=== PATIENT | female | born 1950 | race Caucasian/White ===

== ENCOUNTER → 2016-08-10 | Outpatient (CLI) | payer OTHER ==
--- NOTE | 2016-08-10 18:31 | DI ---
Right ankle pain. Prior study 07/14/16. Procedure: Three-view. Findings: Evidence of prior plate placement lateral fibula and what appears to be a suture anchor in the medial tibia, well above the medial malleolus. Separate ossification subjacent to the medial mall eolus, possibly a fracture fragment. Talar dome appears intact but slightly asymmetric. No evidence o f osteo-chondritis dissecans. Large enthesophyte inferior os calcis. Overall bone mineral density low. Some degenerative changes in the midfoot. Moderate lateral soft tissue swelling. The ankle. No eviden ce of new fracture. IMPRESSION: Moderate soft tissue swelling especially laterally. Evidence of prior orthopedic interven tion. Small fixation disc or suture anchor posteromedially. Large enthesophyte inferior os calcis
== END ==
LOC: ORTHO 16:21
PROVIDERS: ATTEND Orthopaedic Surgery
DX: M25.571 Pain in right ankle and joints of right foot (principal); X50.1XXA Overexertion from prolonged static or awkward postures, initial encounter; F17.210 Nicotine dependence, cigarettes, uncomplicated; Z98.890 Other specified postprocedural states
CPT/HCPCS: 73610

== ENCOUNTER → 2016-09-21 | Outpatient (CLI) | payer OTHER | LOC: MMPC 10:00 | PROVIDERS: ATTEND Orthopaedic Surgery | DX: Z47.89 Encounter for other orthopedic aftercare (principal) ==

== ENCOUNTER → 2016-10-19 | Outpatient (CLI) | payer OTHER ==
[2016-10-19 12:15] LABS: BASOPHILS # (AUTO) 0.03 10*3/UL; BASOPHILS % (AUTO) 0.3 % (0-1); EOSINOPHILS # (AUTO) 0.22 10*3/UL; EOSINOPHILS % (AUTO) 2.6 % (0-8); HEMATOCRIT 41.9 % (37.0-47.0); HEMOGLOBIN 13.8 g/dL (12.0-16.0); LYMPHOCYTES # (AUTO) 2.96 10*3/uL; MEAN CORPUSCULAR HEMOGLOBIN 30.7 PG (27-31); MEAN CORPUSCULAR HGB CONC 32.9 g/dL (33-37); MEAN PLATELET VOLUME 10.3 FL (7.4-12.2); MONOCYTES # (AUTO) 0.56 10*3/UL (0.3-0.8); MONOCYTES % (AUTO) 6.5 % (5-15)
[2016-10-19 12:22] LABS: BLOOD UREA NITROGEN 15 mg/dL (7-22); CALCIUM 9.4 mg/dL (8.7-10.7); EST GLOMERULAR FILTRATION > 60 (>60 ml/min/1.73m(2)); HDL CHOLESTEROL 51 mg/dL (40-150); PLATELET MORPHOLOGY COMMENT NORMAL MORPHOLOGY (NORM); RBC MORPHOLOGY COMMENT NORMAL MORPHOLOGY (NORM); SERUM ALBUMIN 3.9 g/dL (3.5-4.8); SERUM CHOLESTEROL 189 mg/dL (120-200); WBC MORPHOLOGY COMMENT NORMAL MORPHOLOGY (NORM)
== END ==
LOC: MOB LAB 10:40
PROVIDERS: ATTEND Internal Medicine
DX: E78.5 Hyperlipidemia, unspecified (principal); I10 Essential (primary) hypertension; E03.9 Hypothyroidism, unspecified; Z72.0 Tobacco use
CPT/HCPCS: 36415; 80053; 80061; 82550; 84443; 85025

== ENCOUNTER → 2016-10-27 | Outpatient (CLI) | payer OTHER | LOC: MMPC 11:11 | PROVIDERS: ATTEND Surgery | DX: R13.14 Dysphagia, pharyngoesophageal phase (principal); R19.7 Diarrhea, unspecified; Z86.19 Personal history of other infectious and parasitic diseases; K21.0 Gastro-esophageal reflux disease with esophagitis; Z86.010 Personal history of colon polyps | CPT/HCPCS: 99203; G0463 ==

== ENCOUNTER 2016-11-02 08:39 | Day surgery (SDC) | payer OTHER ==
[~2016-11-02 08:39] MED LIST: LIDOCAINE W/ SODIUM BICARB 0.5 ML SYR ONE; Lactated Ringers 1,000 ML PRIMARY IV ONE
--- NOTE | 2016-11-02 10:28 | GEN.OPNOTE ---
EGD Operative Note Surgery Date: 11/02/16 Preoperative Diagnosis: GERD. Dysphagia. Postoperative Diagnosis: Same. Procedure: Esophagogastroduodenoscopy with biopsy. Surgeon: Humza Eason MD Anesthesia Provider: Danni Hernández CRNA Anesthesia Type: MAC Indications: Patient with GERD and progressive dysphasia. Initially to solids but now to liquids. History of H. pylori. Proceed with upper endoscopy with biopsies and possible dilation. Findings: Esophagus: [Normal, no stricture] GE Junction : [Small hiatal hernia. Some inflammation at the GE junction.] Fundus : [Normal] Body : [Normal] Prepyloric : [Mild erythema] Small Intestine : [Normal.] A lubricated flexible upper endoscope was inserted and passed through the esophagus and stomach into the duodenum. The duodenum and duodenal bulb were unremarkable. The pyloric channel was widely patent. There was some erythema at the antrum. Multiple biopsies were taken. Hemostasis was assured. The scope was retroflexed. The entire stomach was unremarkable. There was laxity at the GE junction consistent with a hiatal hernia. The scope was straightened. Air was aspirated. The scope was withdrawn into the distal esophagus. There was in fact a small hiatal hernia. There were some inflammatory changes at the GE junction. Multiple biopsies were taken. Hemostasis was assured. The scope was withdrawn through the remainder of a normal-appearing esophagus and brought through the hypopharynx under suction completing the procedure. Actually I intubated the esophagus twice. There was no evidence of stricture. There was no evidence of proximal inflammation. Patient tolerated the procedure well without complication. She was taken to outpatient surgery in stable condition. Follow-up will be with my office in 1-2 weeks. We will start her on pantoprazole. Depending the biopsy results will consider esophagram versus upper GI versus swallow evaluation to further evaluate her dysphagia. Estimated Blood Loss (mL): 2 Fluids: 800 mL of crystalloid. Pathology: Specimens to pathology included gastric antral and distal esophageal biopsies. Complications: None.
[2016-11-02 11:21] VITALS: RESP 16
[2016-11-02 11:23] VITALS: TEMP 97
== END 2016-11-02 11:00 | disposition home or self-care (01) ==
LOC: SDSC 08:39
PROVIDERS: ATTEND Surgery
DX: K21.0 Gastro-esophageal reflux disease with esophagitis (principal); R13.14 Dysphagia, pharyngoesophageal phase; Z86.010 Personal history of colon polyps
CPT/HCPCS: 43239; J2704; J7120

== ENCOUNTER → 2016-11-12 | Outpatient (CLI) | payer OTHER | LOC: MMPC 11:11 | PROVIDERS: ATTEND Surgery | DX: K21.0 Gastro-esophageal reflux disease with esophagitis (principal); K44.9 Diaphragmatic hernia without obstruction or gangrene; R13.14 Dysphagia, pharyngoesophageal phase | CPT/HCPCS: 99213; G0463 ==

== ENCOUNTER → 2016-11-27 | Outpatient (CLI) | payer OTHER | LOC: MMPC 11:11 | PROVIDERS: ATTEND Nurse Practitioner | DX: M48.06 Spinal stenosis, lumbar region (principal) | CPT/HCPCS: 99213; G0463 ==